=== PATIENT | female | born 1960 | race Caucasian/White ===

== ENCOUNTER → 2024-02-24 12:20 | Outpatient (REF) | payer BC, SELFPAY | LOC: RAD 12:20 | PROVIDERS: ATTENDING PHYSICIAN Physician Assistant | DX: M25.562 Pain in left knee (principal) | CPT/HCPCS: 73564 ==

== ENCOUNTER 2025-04-18 15:33 | Emergency (ER) | payer OTHER, SELFPAY ==
[2025-04-18 15:54] VITALS: BP 152/76
[2025-04-18 19:48] VITALS: BMI 34.4
--- NOTE | 2025-04-18 20:24 | ED.GENMED ---
History of Present Illness
General
Chief Complaint: Eye Problems
Source: patient
Exam Limitations: none
Time Seen by Provider: 04/18/25 19:21
Nursing documentation reviewed up to this point in time: agreed with
Past History
Past History
ED Past Medical History: Asthma and Hypercholesterolemia
ED Past Surgical History: Cholecystectomy
Social History
Tobacco: Non-smoker
Alcohol: None
Personal:
Living: alone
Employment: Employed
Course
Orders/Labs/Results
Orders:
Orders
04/18/25 20:20
Artificial Tears (Pf) [Refresh Eye Drops (Pf)] 1 drops OPHTH NOW STA
Vital Signs
Initial and Last Documented VS:
Initial Vital Signs
Temp Pulse Resp BP Pulse Ox
98.8 F 77 17 152/76 97
04/18/25 15:54 04/18/25 15:54 04/18/25 15:54 04/18/25 15:54 04/18/25 15:54
Last Documented Vital Signs
Temp Pulse Resp BP Pulse Ox
98.8 F 77 17 152/76 97
04/18/25 15:54 04/18/25 15:54 04/18/25 15:54 04/18/25 15:54 04/18/25 15:54
*Pulse Oximetry
SaO2: 97
Oxygen Mode of Delivery: Room air
ED Attending Note
-
Portions of this chart may have been created with voice recognition software.� Occasional wrong word or��sound alike� substitutions may have occurred due to the inherent limitations of voice recognition software.
Discharge Plan
Departure
Patient Disposition: Home (Routine Discharge)
Date of Disposition: 04/18/25
Time of Disposition: 20:21
Patient with high blood pressure during this ER visit?: No
Condition: Good
Covid-19: Not Applicable
Discharge Problem:
Chemical exposure of eye
Instructions: Artificial Tears, Chemical eye injury - ED (DC)
Referrals:
Lexus Barbosa MD [Active, Ophthalmology] - Tomorrow
Linsey Villegas PA [Family Provider, Family Practice]
Activity Restrictions/Additional Instructions:
Continue artificial eyedrops 1 drop to your right eye every hour while awake for the next 24 hours. Follow-up with ophthalmology in 2 to 3 days or sooner for any changes in/worsening of your symptoms.
Interventions
Interventions:
*General Assessment Last Done: 04/18/25 15:55
*Neglect/Abuse Screening Last Done: 04/18/25 15:55
*ED COVID-19 Vaccine History Last Done: 04/18/25 15:55
*ED Influenza Vaccine History Last Done: 04/18/25 15:55
[facility] Risk Assessment Tool Last Done: 04/18/25 19:52
*Risk Screen - Suicide (C-SSRS) Last Done: 04/18/25 15:55
Discharge Date and Time
Print Language: CYMRO
[2025-04-18] MEDS: REFRESH EYE DROPS (PF) 1 DROPS OPHTH (20:30)
== END 2025-04-18 20:39 | disposition home or self-care (01) ==
LOC: EMR 15:33
PROVIDERS: EMERGENCY PHYSICIAN Emergency Medicine; FAMILY PHYSICIAN Physician Assistant
DX: Z77.098 Contact with and (suspected) exposure to other hazardous, chiefly nonmedicinal, chemicals (principal); H57.9 Unspecified disorder of eye and adnexa; E78.00 Pure hypercholesterolemia, unspecified; J45.909 Unspecified asthma, uncomplicated
CPT/HCPCS: 99283